=== PATIENT | male | born 1990 | race Caucasian/White ===

== ENCOUNTER 2018-11-23 23:46 | Emergency (ER) | payer BC, OTHER, SELFPAY ==
[~2018-11-23] VITALS: Ht 175.3 cm; Wt 75.0 kg
[2018-11-24 02:21] LABS: INFLUENZA A AMPLIFICATION NEGATIVE (NEGATIVE); INFLUENZA B AMPLIFICATION NEGATIVE (NEGATIVE)
[2018-11-24] MEDS ORDERED: NS 1,000 ML IV ONE ×2 (02:30)
[2018-11-24 02:53] LABS: HEMATOCRIT 35.9 % (42.0-52.0); HEMOGLOBIN 12.2 g/dl (13.5-17.5); MEAN CORPUSCULAR HEMOGLOBIN 32.4 pg (27.0-33.0); MEAN CORPUSCULAR VOLUME 95.5 fl (80.0-96.0); PLATELET COUNT, AUTOMATED 328 10^3/uL (150-450); RED BLOOD COUNT 3.76 10^6/uL (4.30-6.10)
[2018-11-24 03:15] LABS: AMPHETAMINES LEVEL URINE NEGATIVE (NEGATIVE); BARBITURATES URINE NEGATIVE (NEGATIVE); BENZODIAZEPINES URINE NEGATIVE (NEGATIVE); CANNABINOIDS URINE POSITIVE (NEGATIVE); COCAINE METABOLITE URINE NEGATIVE (NEGATIVE); METHADONE URINE NEGATIVE (NEGATIVE); OPIATES URINE NEGATIVE (NEGATIVE); PHENCYCLIDINE URINE NEGATIVE (NEGATIVE)
[2018-11-24 03:21] LABS: ALT/SGPT 20 U/L (12-78); BILIRUBIN,TOTAL 2.5 MG/DL (0.2-1.0); BLOOD UREA NITROGEN 13 MG/DL (7-18); CALCIUM LEVEL 9.1 MG/DL (8.5-10.1); CARBON DIOXIDE LEVEL 27 MEQ/L (21-32); CHLORIDE LEVEL 100 MEQ/L (98-107); CPK CREATINE PHOSPHOKINASE 61 U/L (39-308); CREATININE FOR GFR 1.04 MG/DL (0.70-1.30); GLOMERULAR FILTRATION RATE > 60.0 (>60); GLUCOSE, FASTING 105 MG/DL (70-100); POTASSIUM SERUM 3.9 MEQ/L (3.5-5.1); SODIUM LEVEL 137 MEQ/L (136-145)
[2018-11-24 03:22] LABS: ALBUMIN 3.4 GM/DL (3.2-5.2)
[2018-11-24 03:49] LABS: BILIRUBIN,DIRECT 1.8 MG/DL (0.0-0.2)
[2018-11-24 04:31] VITALS: BP 124/21
--- NOTE | 2018-11-24 08:03 | REP ---
PA and lateral chest: Comparison is 03/12/2011. The lung sanchez are hyperinflated. There is mild interstitial coarsening in the lung bases. There are no focal infiltrates or pleural effusions. Cardiac size is normal. The tanesha, mediastinum, skeletal structures are unremarkable. Impression: Hyperinflation and bibasilar interstitial infiltrates. Electronically Signed by Mirza Moreno MD 11/24/2018 07:54 A
== END 2018-11-24 04:32 | disposition home or self-care (01) ==
LOC: M ED 23:46
DX: E80.6 Other disorders of bilirubin metabolism (principal); R82.1 Myoglobinuria

== ENCOUNTER → 2018-12-04 | Outpatient (CLI) | payer OTHER ==
--- NOTE | 2018-12-04 18:29 | REP ---
Clinical: Abdominal pain with elevated bilirubin levels. Technique: Real time ortega scale ultrasound examination using curved array transducer. Findings: 8 mm hyperechoic focus in the right lobe of the liver is nonspecific but may represent small hemangioma. Liver is otherwise unremarkable. Pancreas is incompletely evaluated due to interposed bowel gas but visualized portions appear normal. Gallbladder is normal and without gallstones, wall thickening, or pericholecystic fluid. No biliary ductal dilatation is appreciated and the common bile duct measures 2.4 mm diameter. The spleen is normal in appearance, size and echotexture. The bilateral kidneys are normal in contour, size, and reniform shape without hydronephrosis. Right kidney measures 10.0 x 4.6 x 4.2 cm. Left kidney measures 10.3 x 5.8 x 4.4 cm. Abdominal aorta is is incompletely evaluated but visualized portions are normal. No ascites. Impression: 1. Possible subcentimeter hepatic hemangioma. 2. Otherwise normal complete abdominal ultrasound. Electronically Signed by Dario Gibbs MD 12/04/2018 06:21 P
== END ==
LOC: M RAD 07:45
PROVIDERS: ATTEND Family Medicine
DX: R17 Unspecified jaundice (principal); R10.9 Unspecified abdominal pain

== ENCOUNTER → 2018-12-29 | Outpatient (REF) | payer OTHER ==
[2018-12-29 14:21] LABS: PERCENT SATURATION 27.5 % (19.7-50.0)
[2018-12-29 14:29] LABS: FOLATE 15.4 NG/ML
== END ==
LOC: M LAB REF 12:53
PROVIDERS: ATTEND Internal Medicine Nephrology
DX: D64.9 Anemia, unspecified (principal)

== ENCOUNTER → 2019-03-27 | Outpatient (REF) | payer OTHER ==
[2019-03-27 19:00] LABS: BILIRUBIN,DIRECT < 0.1 MG/DL (0.0-0.2); BILIRUBIN,TOTAL 0.3 MG/DL (0.2-1.0)
== END ==
LOC: M LAB REF 17:25
PROVIDERS: ATTEND Physician Assistant
DX: R17 Unspecified jaundice (principal); R10.9 Unspecified abdominal pain

== ENCOUNTER → 2020-09-19 | Outpatient (REF) | payer OTHER | LOC: M LAB REF 13:27 | PROVIDERS: ATTEND Internal Medicine Nephrology | DX: E83.42 Hypomagnesemia (principal) ==

== ENCOUNTER → 2021-03-25 | Outpatient (REF) | payer OTHER | LOC: M LAB REF 13:22 | PROVIDERS: ATTEND Nurse Practitioner Family | DX: E83.42 Hypomagnesemia (principal) ==

== ENCOUNTER 2021-04-03 11:38 | Emergency (ER) | payer OTHER ==
[~2021-04-03] VITALS: Ht 175.3 cm; Wt 87.8 kg
[2021-04-03] MEDS ORDERED: MORPHINE 4 MG/ML 1ML VIAL/SYRINGE (J2270) IV ONE (13:00)
[2021-04-03] MEDS ORDERED: NS 1,000 ML IV ONE (13:00)
[2021-04-03] MEDS ORDERED: ONDANSETRON 4MG/2ML VIAL IV ONE (13:00)
[2021-04-03 13:12] LABS: BASO # 0.1 10^3/uL (0.0-0.2); BASO % 0.5 % (0.0-1.0); EOS % 0.4 % (0.0-3.0); HEMATOCRIT 46.3 % (42.0-52.0); HEMOGLOBIN 15.7 g/dl (13.5-17.5); LYMPH # 1.9 10^3/uL (1.5-5.0); LYMPH % 17.7 % (24.0-44.0); MEAN CORPUSCULAR HEMOGLOBIN 31.9 pg (27.0-33.0); MEAN CORPUSCULAR HGB CONC 33.9 g/dl (32.0-36.5); MEAN CORPUSCULAR VOLUME 94.1 fl (80.0-96.0); MONO # 0.8 10^3/uL (0.0-0.8); MONO % 7.3 % (2.0-8.0); NEUTROPHILS # 7.9 10^3/uL (1.5-8.5); NEUTROPHILS % 73.8 % (36.0-66.0); PLATELET COUNT, AUTOMATED 338 10^3/uL (150-450); RED BLOOD COUNT 4.92 10^6/uL (4.30-6.10); WHITE BLOOD COUNT 10.6 10^3/uL (4.0-10.0)
[2021-04-03] MEDS ORDERED: LIDOCAINE W/EPINEPHRINE 1% 20ML VIAL SC ONE (13:15)
[2021-04-03] MEDS ORDERED: fentaNYL 100 MCG/2 ML INJECTION As Ordered ONE (14:03)
[2021-04-03] MEDS ORDERED: fentaNYL 100 MCG/2 ML INJECTION IV ONE (14:05)
[2021-04-03] MEDS ORDERED: HYDR-3713 PO (15:12)
[2021-04-03 15:40] VITALS: BP 143/63
[2021-04-07] MEDS ORDERED: HYDR-4571 PO (09:40)
[2021-04-07] MEDS ORDERED: MAGN1TAB26 PO (09:40)
== END 2021-04-03 15:44 | disposition home or self-care (01) ==
LOC: M ED 11:38
DX: S52.532A Colles' fracture of left radius, initial encounter for closed fracture (principal); S52.615A Nondisplaced fracture of left ulna styloid process, initial encounter for closed fracture; W00.0XXA Fall on same level due to ice and snow, initial encounter; Y92.9 Unspecified place or not applicable; Y93.9 Activity, unspecified; Y99.0 Civilian activity done for income or pay; N18.30 Chronic kidney disease, stage 3 unspecified
CPT/HCPCS: 25605; 73100; 73110; 80047; 85025; 86850; 86900; 86901; 96361; 96374; 96375; 99284; J2270; J2405

== ENCOUNTER 2021-04-08 10:47 | Day surgery (SDC) | payer OTHER ==
[~2021-04-08] VITALS: Ht 175.3 cm; Wt 87.5 kg
[~2021-04-08 10:47] MED LIST: HYDR-3713 PO; HYDR-4571 PO; LR 1,000 ML IV ONE; MAGN1TAB26 PO; MIDAZOLAM INJ 2MG/2ML VIAL (J2250 PER 1MG) IV PRN; ceFAZolin SOD 2 GM in IV 1 EA IV ONE; fentaNYL 100 MCG/2 ML INJECTION IV PRN
[2021-04-08] MEDS ORDERED: MIDAZOLAM INJ 2MG/2ML VIAL (J2250 PER 1MG) As Ordered ONE (12:38)
[2021-04-08] MEDS ORDERED: propofoL 200 MG/20 ML VIAL As Ordered ONE (12:38)
[2021-04-08] MEDS ORDERED: fentaNYL 100 MCG/2 ML INJECTION As Ordered ONE (12:38)
[2021-04-08] MEDS ORDERED: LIDOCAINE 2% 100MG/5ML SDV (FOR ANES.) As Ordered ONE (12:38)
[2021-04-08] MEDS ORDERED: EPINEPHrine INJ 1 MG/ML 1ML AMP XX ONE (13:20)
[2021-04-08] MEDS ORDERED: ROPIvacaine 0.5% 30ML INJECTION (J2795 PER 1MG) XX ONE (13:30)
[2021-04-08] MEDS ORDERED: dexameTHASONE 10MG/1ML VIAL PRES.FREE (J1100 PER 1MG) XX ONE (13:30)
[2021-04-08] MEDS ORDERED: POLYSPORIN TOPICAL OINTMENT 15GM As Ordered ONE (14:42)
[2021-04-08] MEDS ORDERED: BUPIVACAINE HCL 0.25% 30ML VIAL As Ordered ONE (14:42)
[2021-04-08] MEDS ORDERED: ACETAMINOPHEN 1000MG 100ML IV BTL (OFIRMEV) (J0131 PER 10MG) As Ordered ONE (15:24)
[2021-04-08] MEDS ORDERED: ONDANSETRON 4MG/2ML VIAL As Ordered ONE (15:25)
[2021-04-08] MEDS ORDERED: dexameTHASONE 4 MG/ML 1ML VIAL (J1100 PER 1MG) As Ordered ONE (15:25)
[2021-04-08] MEDS ORDERED: HYDROmorphone HCL 2MG/ML 1ML VIAL As Ordered ONE (15:49)
[2021-04-08] MEDS ORDERED: KETOROLAC 60MG 2ML VIAL As Ordered ONE (15:53)
[2021-04-08] MEDS ORDERED: fentaNYL 100 MCG/2 ML INJECTION IV PRN (16:45)
[2021-04-08] MEDS ORDERED: ONDANSETRON 4MG/2ML VIAL IV PRN (16:45)
[2021-04-08] MEDS ORDERED: oxyCODONE 5MG TAB PO PRN (16:45)
[2021-04-08] MEDS ORDERED: LR 1,000 ML IV SCH (16:45)
[2021-04-08 18:28] VITALS: BP 139/80
== END 2021-04-08 18:30 | disposition home or self-care (01) ==
LOC: M SDC 10:47
PROVIDERS: ATTEND Orthopaedic Surgery Hand Surgery
DX: S52.552A Other extraarticular fracture of lower end of left radius, initial encounter for closed fracture (principal); W17.89XA Other fall from one level to another, initial encounter; Y92.79 Other farm location as the place of occurrence of the external cause; Y99.0 Civilian activity done for income or pay; N18.2 Chronic kidney disease, stage 2 (mild); Z79.899 Other long term (current) drug therapy; Y93.89 Activity, other specified
CPT/HCPCS: 25607; 64415; 76000; C1713; J0131; J0171; J0690; J1100; J1170; J1885; J2250; J2405; J2795; J3010

== ENCOUNTER → 2021-04-17 | Outpatient (CLI) | payer OTHER ==
[~2021-04-17] MED LIST changes: -LR 1,000 ML IV ONE; -MIDAZOLAM INJ 2MG/2ML VIAL (J2250 PER 1MG) IV PRN; -ceFAZolin SOD 2 GM in IV 1 EA IV ONE; -fentaNYL 100 MCG/2 ML INJECTION IV PRN
== END ==
LOC: M SOG 08:03
PROVIDERS: ATTEND Orthopaedic Surgery Hand Surgery
DX: S52.592D Other fractures of lower end of left radius, subsequent encounter for closed fracture with routine healing (principal)

== ENCOUNTER 2022-05-04 07:58 | Emergency (ER) | payer OTHER ==
[~2022-05-04] VITALS: Ht 175.3 cm; Wt 79.5 kg
[2022-05-04] MEDS ORDERED: BOOSTRIX/ADACEL VACCINE (DIPHTH/PERTUSS/ACELL/TETANUS) 0.5ML SYR IM.IMMUN ONE (08:50)
[2022-05-04] MEDS ORDERED: BUPIVACAINE HCL 0.5% 10ML VIAL SC ONE (08:50)
[2022-05-04 09:53] VITALS: BP 135/73
== END 2022-05-04 09:55 | disposition home or self-care (01) ==
LOC: M ED 07:58
DX: S61.213A Laceration without foreign body of left middle finger without damage to nail, initial encounter (principal); W26.8XXA Contact with other sharp object(s), not elsewhere classified, initial encounter; Y99.0 Civilian activity done for income or pay; Z79.899 Other long term (current) drug therapy
CPT/HCPCS: 12002; 90471; 90715; 99284; S0020

== ENCOUNTER 2022-05-14 09:28 | Emergency (ER) | payer OTHER ==
[~2022-05-14] VITALS: Ht 175.3 cm; Wt 78.2 kg
[2022-05-14 12:07] VITALS: BP 139/72
== END 2022-05-14 12:08 | disposition home or self-care (01) ==
LOC: M ED 09:28
DX: Z48.02 Encounter for removal of sutures (principal); T81.31XA Disruption of external operation (surgical) wound, not elsewhere classified, initial encounter; S61.213S Laceration without foreign body of left middle finger without damage to nail, sequela; Z79.899 Other long term (current) drug therapy